=== PATIENT | female | born 1985 | race Caucasian/White ===

== ENCOUNTER 2025-04-09 20:52 | Emergency (ER) | payer SELFPAY ==
[~2025-04-09] VITALS: Ht 152.4 cm; Wt 55.0 kg
[2025-04-09 20:54] VITALS: BP 140/98; PULSE 84; RESP 16; TEMP 36.5; O2SAT 98
== END 2025-04-09 22:47 | disposition left against medical advice (07) ==
LOC: ER 20:52
DX: Z00.8 Encounter for other general examination (principal)
CPT/HCPCS: 99281